=== PATIENT | male | born 1960 | race Caucasian/White ===

== ENCOUNTER 2018-10-09 08:07 | Observation (INO) | payer BC, OTHER ==
--- NOTE | 2018-10-09 08:49 | RAD ---
RADIOGRAPH CHEST 1 VIEW: HISTORY: A 58-year-old male with chest pain. FINDINGS: There are no air space densities, pulmonary edema, pneumothorax, or cardiomegaly. The lateral costop hrenic angles are sharp. IMPRESSION: No acute cardiopulmonary findings. jn [] POS: CATIA
[2018-10-09 08:52] LABS: #Basophils 0.1 thou/uL (0.0-0.2); #Eosinphils 0.4 thou/uL (0.0-0.7); #Lymphocytes 4.2 thou/uL (1.20-3.40); #Monocytes 0.9 thou/uL (0.11-0.59); #Neutrophils 4.8 thou/uL (1.40-6.50); %Basophils 0.8 % (0.0-1.0); %Eosinophils 3.5 % (0.0-10.0); %Lymphocytes 40.5 % (21.0-51.0); %Monocytes 8.8 % (0.0-10.0); %Neutrophils 46.4 % (42.0-75.0); Mean Corpuscular HGB CONC 33.1 g/dL (32.0-36.0); Mean Corpuscular Volume 93.5 fL (78.0-98.0); Mean Platelet Volume 6.5 fL (7.4-10.4); Platelet Count 309 thou/uL (130-400); RBC Distribution Width 12.6 % (11.5-14.5); Red Blood Cell (RBC) Count 4.52 mill/uL (4.70-6.10); White Blood Cell (WBC) Count 10.3 thou/uL (4.8-10.8)
[2018-10-09 09:14] LABS: ALT (SGPT) 26 U/L (8-55); AST (SGOT) 19 U/L (5-34); Albumin 4.1 g/dL (3.5-5.0); Alkaline Phosphatase 53 U/L (40-150); Anion Gap 12 mmol/L (10-20); BUN (Urea Nitrogen) 14 mg/dL (8.4-25.7); Bilirubin, Total 0.3 mg/dL (0.2-1.2); CK (CPK) 345 U/L (30-200); Calc. Creatinine Clearance 0 mL/min (70-130); Calcium 9.3 mg/dL (7.8-10.44); Carbon Dioxide 26 mmol/L (22-29); Chloride 109 mmol/L (98-107); Estimated GFR-MDRD 77; Globulin 2.7 g/dL (2.4-3.5); Glucose 120 mg/dL (70-105); Potassium 4.4 mmol/L (3.5-5.1); Protein, Total 6.8 g/dL (6.0-8.3); Sodium 143 mmol/L (136-145)
[2018-10-09] MEDS ORDERED: Regadenoson 0.4 MG/5 ML SYRINGE ONE (09:26)
[2018-10-09] MEDS ORDERED: Acetaminophen 325 MG TAB PO PRN (10:53)
[2018-10-09] MEDS ORDERED: Ondansetron PF 4 MG/2 ML Vial IVP PRN (10:53)
[2018-10-09] MEDS ORDERED: Nitroglycerin 0.4 MG TAB (25 Tab Bottle) PO PRN (10:53)
[2018-10-09] MEDS ORDERED: Senokot S 8.6-50 MG TAB PO PRN (10:53)
--- NOTE | 2018-10-09 11:29 | HP ---
PRIMARY CARE PROVIDER: Dr. Tin Dean in [place], [place]. PRIMARY CLIENT PORTFOLIO MANAGER: Dr. Wilde. CHIEF COMPLAINT: Chest pain. HISTORY OF PRESENT ILLNESS: Mr. Brown is a pleasant 58-year-old gentleman, who was seen at [facility] on October 09, 2018. He reports that in 2001, he had chest pain. At that time, he was found to have normal coronaries. He was seen by Electrophysiology in [place] and had an ablation. 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 Around 06:25 a.m., he had been up for a couple of hours, he got up and walked out of the bedroom. He was making his way to the living room when he had retrosternal pain. He describes it as sharp, radiating to jaw and radiating down his left arm, accompanied by diaphoresis, nausea, shortness of breath, and lightheadedness. He reports that it was 10/10 at its worst. He took his 's nitroglycerin, without any significant relief. Five minutes later, he took two aspirin tablets, 325 mg strength. Around 06:45 a.m., he took another nitroglycerin. By this time, EMS were called. They advised him not to take a 3rd dose of nitroglycerin. After his arrival at the emergency room, the pain gradually resolved. He denies any cough, fevers, or chills. REVIEW OF SYSTEMS: All other systems reviewed and found to be negative. PAST MEDICAL HISTORY: Peripheral neuropathy, emphysema, dyslipidemia, hypertension, seizures, and asthma. PAST SURGICAL HISTORY: Cardiac ablation and right knee surgery. SOCIAL HISTORY: The patient smokes 1 to 1-1/2 packs of cigarettes a day. He denies alcohol use or recreational drug use. FAMILY HISTORY: No family history of premature coronary artery disease. ALLERGIES: NO KNOWN DRUG ALLERGIES. CURRENT MEDICATIONS: 1. Propranolol 160 mg daily. 2. Fenofibrate 145 mg daily. 3. Primidone 250 mg daily. 4. Alpha lipoic acid 600 mg daily. 5. Prilosec 20 mg daily. 6. Atorvastatin 40 mg at bedtime. 7. Aleve p.r.n. PHYSICAL EXAMINATION: GENERAL: On examination, Mr. Brown is awake and alert, not in acute distress. VITAL SIGNS: Blood pressure is 123/62, pulse 70, respiratory rate 18, and oxygen saturation 97% on room air. He is afebrile. EYES: No scleral icterus, no conjunctival pallor. ENT: Moist mucosal membranes. No oropharyngeal erythema or exudates. NECK: Supple, nontender, trachea is midline. RESPIRATORY: Accessory muscles of breathing are not active. Chest wall movements are symmetric bilaterally. Lungs are clear to auscultation without wheeze, rhonchi, or crepitations. CARDIOVASCULAR: S1 and S2 are heard, regular. Peripheral pulses palpable. No carotid bruit. No pericardial rub. ABDOMEN: Soft, nontender, bowel sounds heard, no hepatomegaly, no splenomegaly. NEUROLOGIC: Cranial nerves 2 through 12 intact, deep tendon reflexes 2+. MUSCULOSKELETAL: Power is 5/5 in all four extremities. SKIN: No rashes or subcutaneous nodules. LYMPHATIC: No cervical lymphadenopathy. PSYCHIATRIC: Normal mood, normal affect, the patient is oriented to person, place, and time. LABORATORY STUDIES: Mr. Brown's labs and investigations were reviewed. I reviewed his electrocardiogram, which shows normal sinus rhythm, no ST changes to suggest an acute coronary syndrome. I also reviewed his chest x-ray, which does not show any pulmonary infiltrates. He has an unremarkable CBC, unremarkable comprehensive metabolic profile, elevated creatine kinase of 345 and normal troponin I. ASSESSMENT AND PLAN: Mr. Brown is a pleasant 58-year-old gentleman, who was seen at [facility] on October 09, 2018. His problem list includes: 1. Chest pain: Etiology is unclear. Given his significant risk factors, Mr. Brown will be admitted to the hospital for further workup on observation status. We will monitor him on telemetry. We will check nuclear stress test. 2. Hypertension: We will continue his home medications, monitor vital signs and titrate antihypertensives as needed. 3. Dyslipidemia: We will continue fenofibrate and statin for now. However, if he continues to have pain and his CK continues to be elevated, his medications may need to be held and reassessed by his primary care provider. 4. Emphysema: Stable. 5. Tobacco abuse: We will start Mr. Brown on nicotine replacement therapy. He has been counseled regarding tobacco cessation. Many thanks for allowing me to participate in your patient's care. Please feel free to contact me with any questions or concerns. LEVEL OF RISK: High. LEVEL OF COMPLEXITY: High. Job ID: [id number] [email or web address]
[2018-10-09 13:05] LABS: CKMB 1.4 ng/mL (0-6.6)
[2018-10-09 16:56] VITALS: BMI 31.8
[2018-10-09] MEDS: Nicotine 21 MG PATCH TD SCH (17:20)
[2018-10-09 17:57] LABS: CKMB 2.5 ng/mL (0-6.6)
--- NOTE | 2018-10-09 18:39 | NM ---
RADIONUCLIDE STRESS/REST MYOCARDIAL PERFUSION SCAN WITH CT ATTENUATION CORRECTION AND SPECT IMAGING LEFT VENTRICULAR WALL MOTION EVALUATION AND EJECTION FRACTION: History: Chest pain FINDINGS: Lexiscan protocol. Homogenous uptake of radiotracer throughout the left ventricular myocardium. No focal perfusion defec t or reversibility. QGS analysis of gated SPECT images shows no focal wall motion abnormalities. Ejec tion fraction calculated at 62%. IMPRESSION: 1. Normal myocardial perfusion scan showing no evidence of ischemia. 2. Normal LVEF. POS: CATIA
[2018-10-10 06:09] LABS: #Basophils 0.1 thou/uL (0.0-0.2); #Eosinphils 0.4 thou/uL (0.0-0.7); #Lymphocytes 4.2 thou/uL (1.20-3.40); #Neutrophils 4.9 thou/uL (1.40-6.50); %Basophils 0.9 % (0.0-1.0); %Eosinophils 3.8 % (0.0-10.0); %Lymphocytes 39.8 % (21.0-51.0); %Monocytes 9.4 % (0.0-10.0); Hemoglobin 13.7 g/dL (14.0-18.0); Mean Corpuscular HGB CONC 33.3 g/dL (32.0-36.0); Mean Corpuscular Hemoglobin 31.2 pg (27.0-31.0); Mean Corpuscular Volume 93.5 fL (78.0-98.0); Mean Platelet Volume 6.6 fL (7.4-10.4); Platelet Count 289 thou/uL (130-400); RBC Distribution Width 12.5 % (11.5-14.5); Red Blood Cell (RBC) Count 4.39 mill/uL (4.70-6.10); White Blood Cell (WBC) Count 10.7 thou/uL (4.8-10.8)
[2018-10-10 06:31] LABS: Anion Gap 11 mmol/L (10-20); BUN (Urea Nitrogen) 14 mg/dL (8.4-25.7); Calc. Creatinine Clearance 118 mL/min (70-130); Calcium 9.4 mg/dL (7.8-10.44); Carbon Dioxide 28 mmol/L (22-29); Chloride 107 mmol/L (98-107); Estimated GFR-MDRD 74; Glucose 98 mg/dL (70-105); Potassium 4.9 mmol/L (3.5-5.1); Sodium 141 mmol/L (136-145)
[2018-10-10 08:04] VITALS: TEMP 98.3
[2018-10-10] MEDS ORDERED: Enoxaparin Sodium 40 MG/0.4 ML SYRINGE SC SCH (09:00)
[2018-10-10] MEDS ORDERED: Aspirin 325 MG TAB PO SCH (09:00)
[2018-10-10] MEDS: Nicotine 21 MG PATCH TD SCH (09:08)
[2018-10-10 11:56] VITALS: BP 128/65
--- NOTE | 2018-10-11 05:37 | DIS ---
DATE OF ADMISSION: 10/09/2018 DATE OF DISCHARGE: 10/10/2018 PRIMARY CARE PROVIDER: Dr. Tin Dean in [place], [place]. DISCHARGE DIAGNOSES: 1. Chest pain. 2. Most likely musculoskeletal etiology for chest pain. CONDITION OF PATIENT ON THE DAY OF DISCHARGE: Stable. I assessed Mr. Brown on the day of discharge. He denies any chest pain or shortness of breath. Vital signs are stable. S1 and S2 are heard, regular. Lungs are clear to auscultation bilaterally. DISCHARGE MEDICATIONS: No change was made to his pre-admission home medications as dictated on my history and physical note dated October 09, 2018. HOSPITAL COURSE: Mr. Brown is a pleasant 58-year-old gentleman, who was admitted to [facility] on October 09, 2018, for chest pain. Please refer to my history and physical note dated October 09 for further details. He was monitored on telemetry. He had normal troponins. He had a normal D-dimer. Nuclear stress test was normal. Left ventricular ejection fraction was 62%. His chest pain resolved, and he is being discharged home in a stable condition. He is advised to follow up with his primary care provider in 3 days' time. Many thanks for allowing me to participate in your patient's care. Please feel free to contact me with any questions or concerns. DISCHARGE DESTINATION: Home. Job ID: [id number]
== END 2018-10-10 13:25 | disposition home or self-care (01) ==
LOC: ERS 08:07 → ERHOLD 10:13 → 2SW 16:28
PROVIDERS: ADMIT Internal Medicine; ATTEND Internal Medicine
DX: R07.2 Precordial pain (principal); E78.5 Hyperlipidemia, unspecified; J45.909 Unspecified asthma, uncomplicated; F17.210 Nicotine dependence, cigarettes, uncomplicated; I10 Essential (primary) hypertension; G62.9 Polyneuropathy, unspecified; J43.9 Emphysema, unspecified; Z79.1 Long term (current) use of non-steroidal anti-inflammatories (NSAID); Z79.899 Other long term (current) drug therapy
CPT/HCPCS: 36415; 71045; 78452; 80048; 80053; 82550; 82553; 84484; 85025; 85379; 93005; 93017; 94760; A9500; G0378; J2785

== ENCOUNTER 2020-12-18 09:42 | Outpatient (CLI) | payer MEDICARE | END 2020-12-18 09:43 | disposition home or self-care (01) | LOC: BICRAD 09:42 | PROVIDERS: ATTEND Internal Medicine Pulmonary Disease | DX: R06.00 Dyspnea, unspecified (principal) | CPT/HCPCS: 71046 ==

== ENCOUNTER 2021-06-06 14:45 | Inpatient (IN) | payer MEDICARE ==
[2021-06-09 11:41] VITALS: BMI 29.7
[2021-06-10] MEDS ORDERED: Dexamethasone 4 mg/ml Vial ONE (06:25)
[2021-06-10] MEDS ORDERED: Bupivacaine PF 0.5% 30 ML VIAL ONE (06:25)
[2021-06-10] MEDS ORDERED: Heparin 5,000 UNITS/ML VIAL ONE (06:25)
[2021-06-10] MEDS ORDERED: EPINEPHrine 1 MG/ML AMP ONE (06:25)
[2021-06-10] MEDS ORDERED: PHENYLEPHRINE-NS 100 MCG/ML 10 ML SYRINGE ONE (06:54)
[2021-06-10] MEDS ORDERED: Fentanyl 100 MCG/2 ML VIAL ONE ×4 (06:54→13:10)
[2021-06-10] MEDS ORDERED: Phenylephrine 10 MG/ML VIAL ONE (06:55)
[2021-06-10] MEDS ORDERED: Protamine Sulfate 50 MG/5 ML VIAL ONE (06:56)
[2021-06-10] MEDS ORDERED: Ondansetron ODT 4 MG TAB ONE (07:10)
[2021-06-10] MEDS ORDERED: PROPOFOL 200 MG/20 ML VIAL ONE (07:48)
[2021-06-10] MEDS ORDERED: Vecuronium 10 MG VIAL ONE (07:48)
[2021-06-10] MEDS ORDERED: Lidocaine 1% PF 5 ML VIAL ONE (07:48)
[2021-06-10] MEDS ORDERED: Glycopyrrolate 0.2 MG/ML 5 ML SYRINGE ONE (07:48)
[2021-06-10] MEDS ORDERED: Ondansetron PF 4 MG/2 ML Vial ONE (07:48)
[2021-06-10] MEDS ORDERED: Dexamethasone 20 MG/5 ML VIAL ONE (07:48)
[2021-06-10] MEDS ORDERED: Ondansetron PF 4 MG/2 ML Vial IVP PRN (08:41)
[2021-06-10] MEDS ORDERED: Phenylephrine 40 MG in Sodium Chloride 0.9% 250 ML 246 ML IVPB PRN ×2 (08:41→14:41)
[2021-06-10] MEDS ORDERED: hydrALAZINE 20 MG/ML VIAL SLOW IVP PRN (08:41)
[2021-06-10] MEDS ORDERED: traMADol HCl 50 MG TAB PO PRN ×2 (08:41)
[2021-06-10] MEDS ORDERED: Acetaminophen 325 MG TAB PO PRN (08:41)
[2021-06-10] MEDS ORDERED: Nitroglycerin 50 MG/250 ML BOT 250 ML IVPB PRN (08:41)
[2021-06-10] MEDS ORDERED: Magnesium Oxide 250 MG TAB PO SCH (09:00)
[2021-06-10] MEDS ORDERED: Fenofibrate Nanocrystallized 145 MG TAB PO SCH (09:00)
[2021-06-10] MEDS ORDERED: Clopidogrel Bisulfate 75 MG TAB PO SCH (09:00)
[2021-06-10] MEDS: Sodium Chloride 0.9% 1,000 ML IV SCH ×2 (10:00→19:44)
[2021-06-10] MEDS ORDERED: CEFAZOLIN 2 GM in Premix Bag 1 BAG IVPB SCH (15:00)
[2021-06-10] MEDS ORDERED: ceFAZolin 2 GM/DEX 5% 100 ML BAG ONE ×2 (15:04→15:05)
[2021-06-10] MEDS: HYDROcodone/Acetaminophen 5/325 mg Tablet PO PRN ×2 (15:35→21:08)
[2021-06-10] MEDS ORDERED: HYDROcodone/Acetaminophen 5/325 mg Tablet ONE ×2 (15:36→21:03)
[2021-06-10] MEDS ORDERED: Losartan 25 MG TAB PO SCH (21:00)
[2021-06-10] MEDS ORDERED: Atorvastatin Calcium 40 MG TAB PO SCH (21:00)
[2021-06-10] MEDS ORDERED: ALPHA LIPOIC ACID 600 MG PO SCH (21:00)
[2021-06-10] MEDS ORDERED: Atorvastatin Calcium 40 MG TAB ONE (21:03)
[2021-06-10] MEDS ORDERED: Sodium Chloride 0.9% 10 ML ONE (21:38)
[2021-06-10] MEDS ORDERED: CEFAZOLIN 1 GM VIAL ONE (22:31)
[2021-06-10] MEDS ORDERED: Sodium Chloride 0.9% 0 ML ONE (22:32)
[2021-06-10] MEDS: ceFAZolin Sodium/D5W 2 GM in Premix Bag 1 BAG IVPB SCH (23:02)
[2021-06-11] MEDS: Sodium Chloride 0.9% 1,000 ML IV SCH (03:19)
[2021-06-11 04:04] VITALS: TEMP 97.4
[2021-06-11] MEDS ORDERED: ceFAZolin 2 GM/DEX 5% 100 ML BAG ONE (06:06)
[2021-06-11] MEDS: ceFAZolin Sodium/D5W 2 GM in Premix Bag 1 BAG IVPB SCH (06:19)
[2021-06-11] MEDS ORDERED: cloNIDine 0.1 MG TAB PO PRN (07:45)
[2021-06-11] MEDS ORDERED: hydrALAZINE 25 MG TAB PO SCH (08:00)
[2021-06-11] MEDS ORDERED: Tamsulosin HCl 0.4 MG CAP PO SCH (09:00)
[2021-06-11] MEDS ORDERED: Amlodipine 10 MG TAB PO SCH (09:00)
[2021-06-11] MEDS ORDERED: Propranolol HCl LA 80 MG CAP PO SCH (09:00)
[2021-06-11] MEDS ORDERED: Primidone 250 MG TAB PO SCH (09:00)
[2021-06-11] MEDS ORDERED: Aspirin 81 mg Enteric Coated Tablet PO SCH (09:00)
[2021-06-16 22:57] VITALS: BP 171/97
== END 2021-06-11 06:15 | disposition home or self-care (01) | DRG 36 ==
LOC: SDC 06-10 06:14 → SURG A 06-10 06:21 → EDSTATUS 06-10 14:45 → PACU-TCU 06-11 02:11
PROVIDERS: ADMIT Thoracic Surgery (Cardiothoracic Vascular Surgery); ATTEND Thoracic Surgery (Cardiothoracic Vascular Surgery)
PROC: 037H3DZ Dilation of Right Common Carotid Artery with Intraluminal Device, Percutaneous Approach (ICD-10-PCS; principal; 2021-06-10)
PROC: B343ZZ3 Ultrasonography of Right Common Carotid Artery, Intravascular (ICD-10-PCS; 2021-06-10)
PROC: B54NZZA Ultrasonography of Left Upper Extremity Veins, Guidance (ICD-10-PCS; 2021-06-10)
DX: I65.23 Occlusion and stenosis of bilateral carotid arteries (principal); Z20.822 Contact with and (suspected) exposure to COVID-19; I10 Essential (primary) hypertension; E78.2 Mixed hyperlipidemia; E11.51 Type 2 diabetes mellitus with diabetic peripheral angiopathy without gangrene; K21.9 Gastro-esophageal reflux disease without esophagitis; J44.9 Chronic obstructive pulmonary disease, unspecified; G40.909 Epilepsy, unspecified, not intractable, without status epilepticus; F17.210 Nicotine dependence, cigarettes, uncomplicated; N40.0 Benign prostatic hyperplasia without lower urinary tract symptoms; M19.90 Unspecified osteoarthritis, unspecified site; Z79.51 Long term (current) use of inhaled steroids; Z79.899 Other long term (current) drug therapy; Z98.890 Other specified postprocedural states
CPT/HCPCS: 76000; 94002; C1876; C1884; J0171; J0690; J1100; J1642; J1644; J2370; J2405; J2704; J2720; J3010; J3490; J7050; J7620; Q0162; S0020

== ENCOUNTER 2021-06-06 15:16 | Outpatient (CLI) | payer MEDICARE ==
[2021-06-06 16:38] LABS: Hemoglobin 13.5 g/dL (13.5-17.5); Mean Corpuscular HGB CONC 33.6 g/dL (32.0-36.0); Mean Corpuscular Hemoglobin 30.3 pg (27.0-33.0); Mean Corpuscular Volume 90.1 fl (81.2-95.1); Mean Platelet Volume 9.2 fl (7.4-10.4); Platelet Count 354 10x3/uL (150-450); RBC Distribution Width 13.3 % (11.5-14.5); Red Blood Cell (RBC) Count 4.46 10x6/uL (4.32-5.72); White Blood Cell (WBC) Count 10.2 10x3/uL (3.5-10.5)
[2021-06-06 16:55] LABS: Anion Gap 16 mmol/L (10-20); BUN (Urea Nitrogen) 11 mg/dL (8.4-25.7); Calc. Creatinine Clearance 0 mL/min (70-130); Calcium 9.6 mg/dL (7.8-10.44); Carbon Dioxide 23 mmol/L (23-31); Chloride 105 mmol/L (98-107); Glucose 98 mg/dL (80-115); Potassium 4.4 mmol/L (3.5-5.1); Sodium 140 mmol/L (136-145)
[2021-06-07 17:41] LABS: SARS-CoV-2 PCR by NAA Not Detected (NotDetected)
== END 2021-06-06 15:17 | disposition home or self-care (01) ==
LOC: LABBT 15:16
PROVIDERS: ATTEND Thoracic Surgery (Cardiothoracic Vascular Surgery)
DX: Z01.818 Encounter for other preprocedural examination (principal); Z20.822 Contact with and (suspected) exposure to COVID-19
CPT/HCPCS: 80048; 85027; U0003; U0005; 93005; 93010

== ENCOUNTER 2023-07-27 10:23 | Outpatient (CLI) | payer OTHER | END 2023-07-27 10:24 | disposition home or self-care (01) | LOC: RAD 10:23 | PROVIDERS: ATTEND Internal Medicine Critical Care Medicine | DX: R06.00 Dyspnea, unspecified (principal) | CPT/HCPCS: 71046 ==

== ENCOUNTER 2024-07-25 13:28 | Outpatient (CLI) | payer OTHER | END 2024-07-25 13:29 | disposition home or self-care (01) | LOC: RAD 13:28 | PROVIDERS: ATTEND Internal Medicine Critical Care Medicine | DX: R06.00 Dyspnea, unspecified (principal) | CPT/HCPCS: 71046 ==